=== PATIENT | male | born 1965 | race Caucasian/White ===

== ENCOUNTER → 2018-11-22 | Outpatient (CLI) | payer BC ==
--- NOTE | 2018-11-22 22:52 | MR ---
EXAMINATION TYPE: MR lumbar spine wo con DATE OF EXAM: 11/22/2018 COMPARISON: Lumbar spine x-ray November 10, 2018. HISTORY: Radiculopathy and intervertebral disc degeneration per order. Right-sided low back pain for 32 years per patient. TECHNIQUE: Multiplanar, multisequence imaging of the lumbar spine is performed without IV contrast. FINDINGS: Sagittal images of the lumbar spine show vertebral body heights to appear satisfactory. And alignment is satisfactory and straightened. Multilevel disc desiccation is present. There is advance d disc space narrowing L3-L4 level redemonstrated. There is mild/moderate multilevel disc space narro wing otherwise seen. There is Modic type I endplate changes with heterogeneous diminished T1 and incr eased T2 signal centered at L3-L4 level. Areas of heterogeneity with red marrow reconversion are pres ent most prominent near the lumbosacral junction. The conus medullaris is normal in position and sig nal ending at L1 level. Axial images at the T12-L1 level shows mild broad-based disc bulge minimally effacing the anterior th ecal sac, bilateral neural foramina are patent. Axial images at the L1-L2 level mild to moderate broad-based posterior disc protrusion mildly effacin g the anterior thecal sac, bilateral neural foramina are patent. Mild facet degenerative changes are present bilaterally. Axial images at the L2-L3 level show moderate broad disc bulge with central disc protrusion component effacing the anterior thecal sac on axial image 24. Bilateral neural foramina remain patent. Axial images at the L3-L4 level show moderate to advanced broad disc bulge effacing the anterior thec al sac on axial image 17 and causing moderate bilaterally anterior inferior neural foraminal narrowin g, right slightly larger than left. Axial images at the L4-L5 level show mild facet degenerative changes bilaterally. There is moderate b road disc bulge with right paracentral disc protrusion component effacing anterior thecal sac axial i mage 10 and causing ijsk-dr-wlecbaml left greater than right bilateral neural foraminal narrowing due to left foraminal disc protrusion component axial image 10. Axial images at the L5-S1 level mild to moderate facet degenerative changes bilaterally with broad di sc bulge and right precentral disc protrusion component minimally effacing anterior thecal sac as the re is increased prominent epidural fat at this level. There is moderate right greater than left bilat eral neural foraminal narrowing noted. There is partial visualization of nodular thickening left adrenal gland axial image 36, cannot exclud e mass at this level. Consider follow-up CT imaging. IMPRESSION: Straightening of lumbar spine with multilevel degenerative changes most prominent at L3-L 4 level with further details as noted above.
== END | disposition home or self-care (01) ==
LOC: RADMRIMAIN 21:05
PROVIDERS: ATTEND Orthopaedic Surgery Orthopaedic Surgery of the Spine
DX: M47.26 Other spondylosis with radiculopathy, lumbar region (principal)
CPT/HCPCS: 72148

== ENCOUNTER → 2018-12-13 | Outpatient (CLI) | payer BC ==
--- NOTE | 2018-12-13 15:04 | CT ---
EXAMINATION TYPE: CT abdomen wo/w con DATE OF EXAM: 12/13/2018 COMPARISON: INDICATION: Lt adrenal mass DLP: 1156 mGycm, Automated exposure control for dose reduction was used. CONTRAST: 100 mL of Isovue 300. Study performed with Oral Contrast TECHNIQUE: Axial images were obtained from above the diaphragm to the pubic rami in the axial plane a t 5 mm thick sections. Reconstructed images are reviewed on the computer in the coronal plane. FINDINGS: Limited CT sections are obtained the lung bases. Some patchy infiltrates in the posterior right lung base. Infectious etiology could be considered.. CT ABDOMEN: Liver: Normal Spleen: Normal Pancreas: Normal Adrenal glands: There is minimal fusiform prominence of the left adrenal gland measuring 1.4 cm in tr ansverse dimension. Gallbladder: Large gallstones are present. Kidneys: No masses are evident. No hydronephrosis is present. No cysts are present. Nonobstructing renal stones are present bilaterally. This would include 3 small renal stones at the mid to inferior pole left kidney measuring 0.2 to 0.3 cm each and a 0.2 cm calcification in the posterior right mid kidney and a 0.2 cm calcification at the mid to superior pole right kidney. Aorta: Vascular calcification is within the aorta. Inferior vena cava: Normal. Loops of bowel distended with oral contrast appears normal. Oral contrast extends to the distal small bowel out of the [id number]. No colonic bowel contrast is evident. Portion of the appendix visual ized is normal IMPRESSIONS: 1. Bilateral nonobstructing renal stones 2. Large gallstones. 3. Subsegmental atelectasis left lung base. 4. Mild thickening of the left adrenal gland.
== END ==
LOC: RADCTMAIN 08:35
PROVIDERS: ATTEND Family Medicine
DX: N20.0 Calculus of kidney (principal); K80.20 Calculus of gallbladder without cholecystitis without obstruction; E27.8 Other specified disorders of adrenal gland
CPT/HCPCS: 74170; Q9967

== ENCOUNTER → 2021-06-17 | Outpatient (CLI) | payer BC ==
--- NOTE | 2021-06-17 10:36 | ECHOF ---
Referral Reason:I10 Hypertension, I20.8 angina pectoris, Z82.49 MEASUREMENTS -------- HEIGHT: 172.7 cm WEIGHT: 83.9 kg BP: RVIDd: 3.7 cm (< 3.3) IVSd: 1.4 cm (0.6 - 1.1) LVIDd: 4.4 cm (3.9 - 5.3) LVPWd: 1.3 cm (0.6 - 1.1) IVSs: 1.9 cm LVIDs: 2.6 cm LVPWs: 1.7 cm LAESV Index (A-L): 29.65 ml/m Ao Diam: 3.2 cm (2.0 - 3.7) AV Cusp: 2.0 cm (1.5 - 2.6) LA Diam: 4.4 cm (2.7 - 3.8) MV EXCURSION: 18.742 mm (> 18.000) MV EF SLOPE: 75 mm/s (70 - 150) EPSS: 0.3 cm MV E Vazquez: 0.89 m/s MV DecT: 161 ms MV A Vazquez: 0.66 m/s MV E/A Ratio: 1.35 RAP: 5.00 mmHg RVSP: 30.62 mmHg FINDINGS -------- Sinus rhythm. This was a technically adequate study. The left ventricular size is normal. There is mild concentric left ventricular hypertrophy. Overa ll left ventricular systolic function is normal with, an EF between 55 - 60 %. The diastolic fillin g pattern is normal for the age of the patient 9.92. The right ventricle is mildly enlarged. LA is midly dilated 29-33ml/m2. The right atrial size is normal. Interatrial and interventricular septum intact. The aortic valve is trileaflet and appears structurally normal. There is no evidence of aortic regu rgitation. There is no evidence of aortic stenosis. Kyms-by-edvrgwin mitral regurgitation is present. Can not rule out Fail MV Leaflet. Mild tricuspid regurgitation present. There is no evidence of pulmonary hypertension. The right v entricular systolic pressure, as measured by Doppler, is 30.62mmHg. Trace/mild (physiologic) pulmonic regurgitation. The aortic root size is normal. Normal inferior vena cava with normal inspiratory collapse consistent with estimated right atrial pre ssure of 5 mmHg. There is no pericardial effusion. CONCLUSIONS -------- 1. The left ventricular size is normal. 2. There is mild concentric left ventricular hypertrophy. 3. Overall left ventricular systolic function is normal with, an EF between 55 - 60 %. 4. The right ventricle is mildly enlarged. 5. LA is midly dilated 29-33ml/m2. 6. Beza-rx-jfmmhztq mitral regurgitation is present. 7. Mild tricuspid regurgitation present. 8. Trace/mild (physiologic) pulmonic regurgitation. [employer]: Lisbet Delcid RDCS
--- NOTE | 2021-06-17 11:37 | NM ---
EXAMINATION TYPE: NM stress cardiolite complete DATE OF EXAM: 06/17/2021 COMPARISON: NONE HISTORY: I10 Hypertension, I20.8 angina pectoris, Z82.49 TECHNIQUE: After the intravenous administration of 9.8 mCi Tc 99m Sestamibi - Rest images obtained 6 5 minutes post injection. The patient exercised using a SAVANNAH protocol and 1 minute prior to peak e xercise was injected with 25 mCi Tc 99m Sestamibi - Stress images obtained 35 minutes post injection. FINDINGS: Targeted heart rate was achieved during performance of the study. Review of stress and rest SPECT michelle ges demonstrates small area of decreased perfusion cardiac apex which may reflect stress-induced isch emia. Correlate clinically. Gated analysis shows normal wall motion with an estimated left ventricula r ejection fraction of 64 %. IMPRESSION: Small area of decreased perfusion cardiac apex which I cannot exclude stress-induced ischemia.
--- NOTE | 2021-06-17 16:23 | EST ---
EXERCISE STRESS AGE: 56 SEX: M HT: 5'8" WT: 185 lbs. PROTOCOL: Juventino STAGE: 3 DURATION OF EXERCISE: 8:00 HEART RATE REST: 55 BLOOD PRESSURE REST: 113/75 MAXIMUM HEART RATE ACHIEVED: 140 MAXIMUM BLOOD PRESSURE: 208/113 85% MPHR: 139 100% MPHR: 164 METS: 9.7 INDICATIONS: Chest pain. CLINICAL INFORMATION: Baseline EKG shows sinus rhythm, normal axis, normal intervals. Patient exercised on Juventino protocol for a total of 8 minutes, achieving 9 METS, 85% of predicted maximal heart rate without chest pain or diagnostic ST-segment depression. Occasional PVCs are noted during exercise. CONCLUSIONS: 1. Good exercise tolerance. 2. Negative stress test by EKG criteria. 3. Cardiolite portion of the stress test will be reported separately. MMODL / IJN: [id number] /
== END | disposition home or self-care (01) ==
LOC: RADNMMAIN 07:24
PROVIDERS: ATTEND Family Medicine
DX: I34.0 Nonrheumatic mitral (valve) insufficiency (principal); I11.9 Hypertensive heart disease without heart failure
CPT/HCPCS: 93017; 93306; 78452; A9500

== ENCOUNTER 2021-06-25 07:13 | Day surgery (SDC) | payer BC ==
[2021-06-22 15:54] VITALS: BMI 28.1
[~2021-06-25 07:13] MED LIST: ALPRAZolam 0.25 MG TAB PO PRN; ALPRAZolam 0.5 MG TAB PO PRN; ASPIRIN 325 MG TAB PO STA; HEPARIN SODIUM,PORCINE 10,000 UNIT in SODIUM CHLORIDE 0.9% 1,000 ML IRRIGATION PRN; HEPARIN SODIUM,PORCINE 2,500 UNIT in SODIUM CHLORIDE 0.9% 250 ML IRRIGATION PRN; NITROGLYCERIN SL TABS 0.4 MG TAB SUBLINGUAL PRN; SODIUM CHLORIDE 0.9% 1,000 ML in EMPTY BAG 1 BAG IV SCH
[2021-06-25 07:36] VITALS: RESP 18; TEMP 97.7
[2021-06-25 07:48] LABS: Basophils % (A) 0 %; Eosinophils # (A) 0.2 k/uL (0-0.7); Eosinophils % (A) 3 %; HCT 44.7 % (39.0-53.0); Lymphocytes # (A) 1.6 k/uL (1.0-4.8); Lymphocytes % (A) 23 %; MCH 31.6 pg (25.0-35.0); MCHC 33.5 g/dL (31.0-37.0); MCV 94.4 fL (80.0-100.0); Mean Platelet Volume 7.6; Monocytes # (A) 0.6 k/uL (0-1.0); Monocytes % (A) 8 %; Neutrophils # (A) 4.4 k/uL (1.3-7.7); Neutrophils % (A) 64 %; Platelet Count 254 k/uL (150-450); RBC 4.73 m/uL (4.30-5.90); RDW 12.5 % (11.5-15.5); WBC 6.9 k/uL (3.8-10.6)
[2021-06-25 08:11] LABS: African American GFR (CKD) >90 (>60 ml/min/1.73 sqM); Anion Gap 8 mmol/L; Blood Urea Nitrogen 18 mg/dL (9-20); Carbon Dioxide 27 mmol/L (22-30); Chloride 104 mmol/L (98-107); Non-African American GFR(CKD) 80 (>60 ml/min/1.73 sqM); Sodium 139 mmol/L (137-145)
[2021-06-25 08:12] LABS: Calcium 9.9 mg/dL (8.4-10.2); Glucose 94 mg/dL (74-99); Potassium 4.6 mmol/L (3.5-5.1)
[2021-06-25] MEDS ORDERED: VERAPAMIL 2.5 MG/ML 2 ML AMP ONE (09:59)
[2021-06-25] MEDS ORDERED: LIDOCAINE 1% INJ 10MG/ML (20 ML MDV) ONE (09:59)
[2021-06-25] MEDS ORDERED: fentaNYL (PF) 50 MCG/ML 2 ML AMP ONE (10:10)
[2021-06-25] MEDS ORDERED: HEPARIN SODIUM 1,000 UN/ML (10ML VL) ONE (10:12)
[2021-06-25] MEDS ORDERED: MIDAZOLAM 2 MG/2 ML VIAL IV ONE (10:25)
[2021-06-25] MEDS ORDERED: LIDOCAINE 1% INJ 10MG/ML (20 ML MDV) SQ ONE (10:27)
[2021-06-25] MEDS ORDERED: VERAPAMIL 2.5 MG/ML 4 ML VIAL INTRAARTER ONE ×2 (10:28→10:29)
[2021-06-25] MEDS: LIDOCAINE 1% INJ 10MG/ML (20 ML MDV) SQ ONE ×2 (10:28→10:40)
[2021-06-25] MEDS: VERAPAMIL 2.5 MG/ML 4 ML VIAL INTRAARTER ONE ×2 (10:30→10:54)
[2021-06-25] MEDS ORDERED: HEPARIN SODIUM 1,000 UN/ML (10ML VL) IV ONE (10:32)
[2021-06-25] MEDS: fentaNYL (PF) 50 MCG/ML 2 ML AMP IV ONE ×2 (10:32→10:40)
[2021-06-25] MEDS ORDERED: IOPAMIDOL-370 125ML BTL INJ ONE (10:55)
[2021-06-25] MEDS ORDERED: RX INFO: IV CONTRAST WAS GIVEN 1 EACH MISC MISCELLANE PRN (11:00)
[2021-06-25] MEDS ORDERED: SODIUM CHLORIDE 0.9% 1,000 ML IV SCH (11:00)
--- NOTE | 2021-06-25 11:48 | CC ---
CARDIAC CATHETERIZATION REPORT DATE OF STUDY: 06/25/2021. INDICATION: Chest discomfort in this 56-year-old gentleman with hypertension and dyslipidemia and significant family history of coronary artery disease who underwent myocardial perfusion imaging stress test and that came in to be abnormal with reversibility. APPROACH: Right radial artery and right common femoral artery. COMPLICATIONS: None. LEVEL OF SEDATION: Moderate, with sedation length of 23 minutes. PROCEDURE DESCRIPTION: After obtaining informed consent, the patient was brought to the cardiac lab intern. The right radial artery was cannulated using micropuncture technique. The micropuncture wire passed easily. Then I placed a 6-Chadian sheath at the right radial artery. Subsequently I did selective right coronary angiogram using JR4 catheter. I had a hard time engaging the left coronary system from right radial approach, and because of that I decided to access the groin. The right common femoral artery was cannulated using micropuncture technique under ultrasound guidance. The micropuncture wire passed easily. Then I placed a 6-Chadian sheath at the right common femoral artery. Selective left coronary angiogram was performed using JL4 catheter, short-tipped. After that, left heart catheterization was performed using a 5-Chadian pigtail catheter. The procedure was completed without any complication. SELECTIVE CORONARY ANGIOGRAM: 1. The right coronary artery is a large-caliber vessel. It is a dominant vessel. The RCA has mild disease. 2. The left main is a moderate-caliber vessel. The left main has mild disease only. It bifurcates into LCX and LAD. 3. The LCX is a large-caliber vessel. It is a nondominant vessel and appeared to be angiographically normal. It gives rise to a large OM branch which appeared to be angiographically normal. 4. The LAD is a large-caliber vessel. LAD is angiographically normal. It gives rise to first and second diagonal branches. Both appeared to be angiographically normal. 5. HEMODYNAMICS: The LVEDP was 14 mmHg without significant gradient across the aortic valve. CONCLUSION: 1. Mild nonobstructive coronary artery disease. 2. Mildly elevated LVEDP. POSTPROCEDURE MANAGEMENT: 1. Medical treatment. 2. Followup with the patient. MMODL / IJN: [id number] /
[2021-06-25 16:24] VITALS: BP 118/66; PULSE 68
== END 2021-06-25 16:26 | disposition home or self-care (01) ==
LOC: CATHCVL 07:13
PROVIDERS: ATTEND Internal Medicine Interventional Cardiology
DX: I25.110 Atherosclerotic heart disease of native coronary artery with unstable angina pectoris (principal); I10 Essential (primary) hypertension; E78.5 Hyperlipidemia, unspecified; R94.39 Abnormal result of other cardiovascular function study; Z82.49 Family history of ischemic heart disease and other diseases of the circulatory system; Z79.82 Long term (current) use of aspirin; Z79.899 Other long term (current) drug therapy
CPT/HCPCS: 93458; 80048; 85025; 87635; C1760; C1887; C1894 ×2; C1769 ×2; J2250; J2001; J3010; J1644; Q9967

== ENCOUNTER → 2021-07-21 | Outpatient (CLI) | payer BC ==
[2021-07-21 12:30] LABS: T4, Free (Free Thyroxine) 0.98 ng/dL (0.800-1.800)
== END | disposition home or self-care (01) ==
LOC: LABWHC1 08:24
PROVIDERS: ATTEND Family Medicine
DX: I10 Essential (primary) hypertension (principal)
CPT/HCPCS: 36415; 83835; 84439; 84443

== ENCOUNTER → 2023-07-28 | Outpatient (CLI) | payer BC ==
--- NOTE | 2023-07-28 15:11 | XR ---
EXAMINATION TYPE: XR lumbosacral spine min 4V DATE OF EXAM: 07/28/2023 CLINICAL HISTORY: Low back pain radiates down right leg. TECHNIQUE: Frontal, lateral, and oblique images of the lumbar spine are obtained. COMPARISON: Prior lumbar spine x-ray November 10, 2018 FINDINGS: There are 5 lumbar type vertebral bodies redemonstrated. The lumbar spine shows stable al ignment without evidence of acute fracture or dislocation. Vertebral body heights are within normal l imits. There is moderate to advanced disc space narrowing with endplate sclerosis and mild moderate a nterior spurring L3-L4 level at the redemonstrated. There is additional mild multilevel disc space na rrowing redemonstrated with new vacuum disc phenomenon at L4-L5 level. The oblique images appear wit hin normal limits. Some mild vascular calcification overlying abdominal aorta is redemonstrated. IMPRESSION: ABOVE.
== END | disposition home or self-care (01) ==
LOC: RADXRMAIN 14:39
PROVIDERS: ATTEND Family Medicine
DX: M51.36 Other intervertebral disc degeneration, lumbar region (principal); M79.604 Pain in right leg
CPT/HCPCS: 72110

== ENCOUNTER → 2024-11-29 | Outpatient (CLI) | payer BC ==
--- NOTE | 2024-11-29 15:09 | MR ---
EXAMINATION TYPE: MR lumbar spine wo con DATE OF EXAM: 11/29/2024 1:32 PM COMPARISON: 11/22/2018 CLINICAL INDICATION: Male, 59 years old with history of M54.10 RADICULOPATHY M47.816 L SPONDYLOSIS M5 1.369, Low back pain into RT side TECHNIQUE: Multiplanar, multisequence images of the lumbar spine were acquired. IV Contrast: mL (None, if empty) FINDINGS: Cord ends at the L1-L2 level. L5-S1: Broad-based disc bulge has moderate epidural space impression. Thecal sac compression is not e vident. No spinal canal stenosis is present. There is moderate right and mild left foraminal narrowin g. L4-L5: Moderate type I degenerative endplate changes are present. There is narrowing of the disc hei ght. Mild anterior thecal sac flattening is present. Facet hypertrophy is present. Severe bilateral foraminal stenosis present. L3-L4: There is loss of disc height resolved. Some endplate spurring from L3 is present. Mild anterio r thecal sac compression is present. No AP spinal canal stenosis present. Severe foraminal stenosis i s present L2-L3: Broad-based disc bulge is present. Some mild central disc bulging is present with mild to mode rate anterior thecal sac compression. No AP spinal canal stenosis is present. Facet hypertrophy is pr esent. Severe bilateral foraminal narrowing is present L1-L2: Mild disc bulge is present with anterior thecal sac flattening. No AP spinal canal stenosis is present. Severe bilateral foraminal stenosis is present T12-L1: No focal disc herniation or significant disc bulge. No spinal canal stenosis. Neural forame n are patent. IMPRESSION: 1. Multilevel severe foraminal stenosis. 2. Degenerative disc changes greatest at L3-4 and L4-5. 3. Multilevel disc bulges with mild to moderate anterior thecal sac compression. No AP spinal canal s tenosis present [facility], , 11/29/2024 3:07 PM
== END | disposition home or self-care (01) ==
LOC: RADMRIMAIN 12:19
PROVIDERS: ATTEND Physical Medicine & Rehabilitation
DX: M47.26 Other spondylosis with radiculopathy, lumbar region (principal); M51.16 Intervertebral disc disorders with radiculopathy, lumbar region; M48.061 Spinal stenosis, lumbar region without neurogenic claudication
CPT/HCPCS: 72148

== ENCOUNTER → 2024-12-24 | Outpatient (CLI) | payer BC ==
[2024-12-24 15:22] LABS: ALT 28 U/L (10-49); AST 24 U/L (14-35); Chol/HDL Ratio 2.75 Ratio; LDL Cholesterol,Calculated 71.7 mg/dL (0.0-131.0)
== END | disposition home or self-care (01) ==
LOC: LABWHC1 08:32
PROVIDERS: ATTEND Internal Medicine Interventional Cardiology
DX: E78.2 Mixed hyperlipidemia (principal)
CPT/HCPCS: 36415; 80061; 84450; 84460